=== PATIENT | female | born 1955 | race Caucasian/White ===

== ENCOUNTER → 2017-10-04 | Outpatient (CLI) | payer OTHER ==
--- NOTE | 2017-10-04 10:41 | MM ---
Reason for exam: additional evaluation requested from prior study. Last mammogram was performed 2 years and 11 months ago. History: Patient is postmenopausal. Retro-pectoral saline implants in both breasts, 1999. Excisional biopsy of the right breast, 1969. Physical Findings: Nurse did not find any significant physical abnormalities on exam. MG 3D Diag Mammo Imp W/Cad ZENAIDA Bilateral CC, MLO, and ID view(s) were taken. Prior study comparison: October 30, 2014, bilateral MG diagnostic mammo w CAD ZENAIDA. August 10, 2013, CAD bilateral diagnostic mammogram. There are scattered fibroglandular densities. No suspicious calcifications are seen. Bilateral implants unchanged. No significant new findings when compared with previous films. These results were verbally communicated with the patient and result sheet given to the patient on 10/04/17. ASSESSMENT: Benign, BI-RAD 2 RECOMMENDATION: Routine screening mammogram of both breasts in 1 year.
== END | disposition home or self-care (01) ==
LOC: RADMAMWWP 09:19
PROVIDERS: ATTEND Family Medicine
DX: R92.8 Other abnormal and inconclusive findings on diagnostic imaging of breast (principal); Z98.82 Breast implant status
CPT/HCPCS: 77066; G0279

== ENCOUNTER → 2017-10-04 | Outpatient (CLI) | payer OTHER ==
--- NOTE | 2017-10-04 12:25 | US ---
EXAMINATION TYPE: US kidneys/renal and bladder DATE OF EXAM: 10/04/2017 COMPARISON: NONE CLINICAL HISTORY: N13.30 HX OF HYDRONEPHROSIS F/U. stent for stone placed in July and out August , assess for hydronephrosis,no pain EXAM MEASUREMENTS: Right Kidney: 10.5 x 4.9 x 4.3 cm Left Kidney: 10.8 x 5.0 x 5.6 cm Right Kidney: No hydronephrosis or masses seen Left Kidney: No hydronephrosis or masses seen Bladder: wnl Bilateral Jets seen: no There is no evidence for hydronephrosis at this point in time. No definite shadowing nephrolithiasis is seen bilaterally. No masses are identified. The urinary bladder is anechoic. Bilateral uretera l jets are not seen. IMPRESSION: No hydronephrosis is evident on current study.
== END | disposition home or self-care (01) ==
LOC: RADUSWWP 10:55
PROVIDERS: ATTEND Urology
DX: N13.30 Unspecified hydronephrosis (principal)
CPT/HCPCS: 76770

== ENCOUNTER → 2018-10-26 | Outpatient (CLI) | payer OTHER ==
--- NOTE | 2018-10-26 08:14 | US ---
EXAMINATION TYPE: US gallbladder DATE OF EXAM: 10/26/2018 COMPARISON: 10/04/2017 CLINICAL HISTORY: R10.9 abdominal and pelvic pain. EXAM MEASUREMENTS: Liver Length: 12.8 cm Gallbladder Wall: 0.2 cm CBD: 0.3 cm Right Kidney: 11.2 x 4.0 x 5.0 cm Pancreas: mostly obscured by bowel gas, portions visualized wnl Liver: liver cyst in left lobe measuring1.6 x 1.7 x 1.7cm Gallbladder: cholelithiasis Evidence for sonographic Cortez's sign: no CBD: wnl Right Kidney: Inferior pole obscured by overlying bowel gas IMPRESSION: 1. Cholelithiasis. 2. No sonographic evidence of acute cholecystitis. 3. Obscuration of the majority the pancreas by overlying bowel gas. 4. Benign-appearing hepatic cyst.
== END ==
LOC: RADUSMAIN 07:03
PROVIDERS: ATTEND Surgery
DX: K80.20 Calculus of gallbladder without cholecystitis without obstruction (principal); K76.89 Other specified diseases of liver
CPT/HCPCS: 76705

== ENCOUNTER 2018-11-01 10:42 | Day surgery (SDC) | payer OTHER ==
[2018-10-31 10:14] VITALS: BMI 22.8
[~2018-11-01 10:42] MED LIST: LACTATED RINGERS 1,000 ML IV SCH; LIDOCAINE 1% 20 ML VIAL (10MG/ML) FOR IV START INTRADERMA PRN
[2018-11-01 11:08] VITALS: TEMP 97.7
[2018-11-01] MEDS ORDERED: LIDOCAINE 1% INJ 10MG/ML (20 ML MDV) ONE (11:20)
[2018-11-01] MEDS ORDERED: PROPOFOL 10 MG/ML 20 ML VIAL IV ONE (11:20)
--- NOTE | 2018-11-01 11:25 | P.GSHP ---
History of Present Illness H&P Date: 11/01/18 Chief Complaint: GERD, diarrhea This is a 63-year-old female who's had issues with GERD and diarrhea. Patient presents today for EGD and colonoscopy. Past Medical History Additional Past Medical History / Comment(s): bronchitis with deep cough currently(pt notified Dr Carias), irregular bowel movements, abdominal pain, hx kidney stone, gallstones, History of Any Multi-Drug Resistant Organisms: None Reported Past Surgical History: Breast Surgery, Orthopedic Surgery Additional Past Surgical History / Comment(s): lithotripsy, cyst removed from rt breast, adan breast augmentation, adan bunionectomy Past Anesthesia/Blood Transfusion Reactions: Previous Problems w/ Anesthesia, Motion Sickness Additional Past Anesthesia/Blood Transfusion Reaction / Comment(s): "during previous colonoscopy I woke up and was totally paralyzed and could not breath" Smoking Status: Former smoker - Past Family History Mother Family Medical History: No Reported History Medications and Allergies Home Medications Medication Instructions Recorded Confirmed Type Albuterol Sulfate [Proair Hfa] 1 - 2 puff INHALATION BID PRN 10/31/18 11/01/18 History Citalopram Hydrobromide [CeleXA] 40 mg PO HS 10/31/18 11/01/18 History Dextroamphetamine/Amphetamine 20 mg PO BID 10/31/18 11/01/18 History [Adderall] Fluticasone Nasal [place] [Flonase 2 spr EA NOSTRIL DAILY 10/31/18 11/01/18 History Nasal [place]] buPROPion HCL [Wellbutrin XL] 150 mg PO DAILY 10/31/18 11/01/18 History lamoTRIgine [LaMICtal] 150 mg PO BID 10/31/18 11/01/18 History Allergies Allergy/AdvReac Type Severity Reaction Status Date / Time No Known Allergies Allergy Verified 11/01/18 10:52 Surgical - Exam Vital Signs Temp Pulse Resp BP Pulse Ox 97.7 F 73 16 108/56 98 11/01/18 11:02 11/01/18 11:02 11/01/18 11:02 11/01/18 11:02 11/01/18 11:02 - General well developed, well nourished, no distress - Eyes PERRL - ENT normal pinna - Neck no masses - Respiratory normal expansion - Cardiovascular Rhythm: regular - Abdomen Abdomen: soft, non tender Assessment and Plan Assessment: GERD, diarrhea. We'll perform EGD and colonoscopy.
--- NOTE | 2018-11-01 11:44 | P.OP ---
Date of Procedure: 11/01/18 Preoperative Diagnosis: Diarrhea GERD Postoperative Diagnosis: Duodenitis Mild antral gastritis No evidence of hiatal hernia Mild esophagitis Mild diverticulosis Procedure(s) Performed: EGD Colonoscopy Anesthesia: MAC Surgeon: Gonsalo Carias Pathology: other (Antrum, esophagus, duodenum) Condition: stable Disposition: PACU Description of Procedure: The patient's placed on the endoscopy table in the lateral position. She received IV sedation. The gastric was placed the oropharynx and passed in the esophagus and into the stomach. Scope then placed through the pylorus. The first and second portion of duodenum was examined. There is evidence of inflammation. A biopsies performed. The scope was then brought back the antrum and this appeared mildly inflamed. Another biopsy performed. The scope was then retroflexed and the remainder of the stomach appeared normal. The GE junction was examined at 40 cm.. There is no evidence of any hiatal hernia. The distal esophagus appeared mildly inflamed a biopsies performed. The proximal esophagus appeared normal. Scope was withdrawn for patient. Next digital rectal exam was performed which revealed no abnormalities. The flexible colonoscope was then placed patient anus and passed throughout the entire colon. The ileocecal valve was visualized. The cecum, ascending and transverse colon appeared normal. In the descending and and sigmoid colon was mild diverticular changes. Scope was then brought back the rectum and this appeared normal. Scope was withdrawn for patient.
[2018-11-01 12:03] VITALS: BP 113/65; PULSE 69; RESP 16
== END 2018-11-01 12:25 | disposition home or self-care (01) ==
LOC: ORWHC2ENDO 10:42
PROVIDERS: ATTEND Surgery
DX: K29.80 Duodenitis without bleeding (principal); K29.50 Unspecified chronic gastritis without bleeding; K20.0 Eosinophilic esophagitis; K21.9 Gastro-esophageal reflux disease without esophagitis; K57.30 Diverticulosis of large intestine without perforation or abscess without bleeding; F90.9 Attention-deficit hyperactivity disorder, unspecified type; F41.9 Anxiety disorder, unspecified; F32.9 Major depressive disorder, single episode, unspecified; Z87.891 Personal history of nicotine dependence; Z79.899 Other long term (current) drug therapy
CPT/HCPCS: 88305; 45378; 43239; J2001; J2704

== ENCOUNTER 2018-11-20 06:55 | Day surgery (SDC) | payer OTHER ==
[2018-11-13 10:50] VITALS: BMI 22.1
[~2018-11-20 06:55] MED LIST changes: +DEXAMETHASONE SOD PHOSPHATE 10 MG/ML 1 ML VIAL IV ONE; +HEPARIN SODIUM,PORCINE 5,000 UNIT/ML 1 ML VIAL SQ ONE; -LIDOCAINE 1% 20 ML VIAL (10MG/ML) FOR IV START INTRADERMA PRN; +MIDAZOLAM (PF) 2 MG/2 ML VIAL IV PRN; +ONDANSETRON 4 MG/2 ML VIAL IVP ONE; +SCOPOLAMINE 1.5MG/72HR PATCH TRANSDERM ONE; +ceFAZolin IN SWFI 2 GM/20 ML SYRINGE IVP ONE
[2018-11-20] MEDS ORDERED: ALBUTEROL NEBULIZED 2.5 MG/3 ML INHALATION STA (07:19)
[2018-11-20] MEDS ORDERED: LIDOCAINE 1% 20 ML VIAL (10MG/ML) FOR IV START INTRADERMA ONE (07:24)
[2018-11-20] MEDS ORDERED: LIDOCAINE 1% INJ 10MG/ML (20 ML MDV) ONE (07:50)
[2018-11-20] MEDS ORDERED: GLYCOPYRROLATE 0.2 MG/ML 2 ML VIAL ONE (07:50)
[2018-11-20] MEDS ORDERED: SUCCINYLCHOLINE CHLORIDE 100 MG/5 ML SYR IV ONE (07:50)
[2018-11-20] MEDS ORDERED: ROCURONIUM BROMIDE 10 MG/ML 10 ML VIAL IV ONE (07:50)
[2018-11-20] MEDS ORDERED: PROPOFOL 10 MG/ML 20 ML VIAL IV ONE (07:50)
[2018-11-20] MEDS ORDERED: ePHEDrine SULFATE/0.9% NACL/PF 50 MG/5 ML SYRINGE IV ONE (07:50)
[2018-11-20] MEDS ORDERED: NEOSTIGMINE 1 MG/ML 10 ML VIAL ONE (07:50)
[2018-11-20] MEDS ORDERED: MIDAZOLAM 2 MG/2 ML VIAL ONE (07:50)
[2018-11-20] MEDS ORDERED: fentaNYL (PF) 50 MCG/ML 2 ML AMP ONE (07:50)
--- NOTE | 2018-11-20 08:01 | P.GSHP ---
History of Present Illness H&P Date: 11/20/18 Chief Complaint: Right upper quadrant pain, gallstones This is a 63-year-old female referred from Dr. Edwina Tyson. Patient presents today for laparoscopic cholecystectomy. Patient complaints of right upper quadrant pain. She is found have gallstones on ultrasound. Past Medical History Additional Past Medical History / Comment(s): PT SEEN DR. TYSON TODAY AND WAS TODAY THAT COUGH WAS RELATED TO SINUS DRAINAGE, irregular bowel movements, abdominal pain, hx kidney stone, gallstones, History of Any Multi-Drug Resistant Organisms: None Reported Past Surgical History: Breast Surgery, Orthopedic Surgery Additional Past Surgical History / Comment(s): lithotripsy, cyst removed from rt breast, adan breast augmentation, adan bunionectomy, EGD, COLONOSCOPY Past Anesthesia/Blood Transfusion Reactions: Previous Problems w/ Anesthesia, Motion Sickness Additional Past Anesthesia/Blood Transfusion Reaction / Comment(s): "during previous colonoscopy I woke up and was totally paralyzed and could not breath" Smoking Status: Former smoker - Past Family History Mother Family Medical History: No Reported History Medications and Allergies Home Medications Medication Instructions Recorded Confirmed Type Albuterol Sulfate [Proair Hfa] 1 - 2 puff INHALATION BID PRN 10/31/18 11/20/18 History Citalopram Hydrobromide [CeleXA] 40 mg PO HS 10/31/18 11/20/18 History Dextroamphetamine/Amphetamine 20 mg PO BID 10/31/18 11/20/18 History [Adderall] Fluticasone Nasal [place] [Flonase 2 spr EA NOSTRIL DAILY 10/31/18 11/20/18 History Nasal [place]] buPROPion HCL [Wellbutrin XL] 150 mg PO DAILY 10/31/18 11/20/18 History lamoTRIgine [LaMICtal] 150 mg PO BID 10/31/18 11/20/18 History Omeprazole 40 mg PO DAILY #60 capsule. 11/01/18 11/20/18 Rx Allergies Allergy/AdvReac Type Severity Reaction Status Date / Time No Known Allergies Allergy Verified 11/13/18 10:45 Surgical - Exam Vital Signs Temp Pulse Resp BP Pulse Ox 97.5 F L 76 16 113/64 100 11/20/18 07:17 11/20/18 07:17 11/20/18 07:17 11/20/18 07:17 11/20/18 07:17 - General well developed, well nourished, no distress - Eyes PERRL - ENT normal pinna - Neck no masses - Respiratory normal expansion - Cardiovascular Rhythm: regular - Abdomen Abdomen: soft, non tender Assessment and Plan Assessment: Cholelithiasis Chronic cholecystitis We'll perform laparoscopic cholecystectomy.
--- NOTE | 2018-11-20 08:17 | P.OP ---
Date of Procedure: 11/20/18 Preoperative Diagnosis: GERD Diverticulitis Postoperative Diagnosis: Mild antral gastritis No hiatal hernia Significant diverticulosis of sigmoid colon Procedure(s) Performed: EGD Colonoscopy Anesthesia: MAC Surgeon: Gonsalo Carias Pathology: other (Antrum) Condition: stable Disposition: PACU Description of Procedure: The patient's placed on the endoscopy table in the lateral position she received IV sedation. The gastric was placed oropharynx and passed into the esophagus and stomach. The scope was then placed through the pylorus. The first and second portion of the duodenum appeared normal. The scope was then brought back the antrum this. Mildly inflamed. A biopsy was performed. Scope was then retroflexed and the remainder of the stomach appeared normal. There was no evidence of a hiatal hernia. The GE junction was at 40 cm. The distal esophagus appeared normal. The proximal esophagus appeared normal. Scope was withdrawn for patient. Next digital rectal exam was performed which revealed no abnormalities. The flexible colonoscope was then placed patient anus and passed throughout the entire colon. The ileocecal valve was visualized. The cecum, ascending and transverse colon appeared normal. In the descending and sigmoid colon there was diverticula noted. There was significant diverticulosis of the sigmoid colon. The scope was brought back the rectum and this appeared normal. Scope was withdrawn for patient.
[2018-11-20] MEDS ORDERED: BUPIVACAIN-EPI 0.5%-1:200,000 30 ML VIAL SQ ONE (08:23)
[2018-11-20] MEDS ORDERED: LACTATED RINGERS 1,000 ML IV ONE (08:31)
--- NOTE | 2018-11-20 08:54 | P.OP ---
Date of Procedure: 11/20/18 Preoperative Diagnosis: Cholecystitis Cholelithiasis Postoperative Diagnosis: Cholecystitis Cholelithiasis Procedure(s) Performed: Laparoscopic cholecystectomy Anesthesia: AMISH Surgeon: Gonsalo Carias Estimated Blood Loss (ml): 5 Pathology: other (Gallbladder) Condition: stable Disposition: PACU Description of Procedure: The patient was placed on the operating table. The patient received a general endotracheal tube anesthesia. The patients abdomen was prepped and draped in the usual sterile fashion. Through an infraumbilical stab incision, the fascia of the anterior abdominal wall was grasped with a pair of Kochers and then the Veress needle was placed in the peritoneal cavity. Position of the Veress needle was confirmed with positive drop test. The abdomen was then insufflated. After adequate insufflation, the 10 mm trocar was placed in the peritoneal cavity. Following this the laparoscope was placed in the peritoneal cavity. The patient was placed in the head-up, right side up position and then a 5 mm trocar was placed in the right lateral and right subcostal position under direct visualization. A 8 mm trocar was placed in the epigastric position. The gallbladder was grasped in the fundus and infundibulum. Traction on the gallbladder was placed in the lateral and the cephalad positions. The triangle of Calot was visualized.. The cystic duct was bluntly dissected until the union of the cystic duct and common bile duct wa s seen. The cystic duct was then divided and sealed with the Harmonic scissors. A PDS Endoloop was then placed throughout the cystic duct stump. The cystic artery divided and sealed with the Harmonic scissors. The gallbladder was then removed from the liver bed using Harmonic scissors. The gallbladder was then extracted through the epigastric port site. Operative field was checked for any bleeding spots and Harmonic scissors was used to coagulate the liver bed. The abdomen was irrigated. The trocars were removed. The skin was closed using interrupted 3-0 Vicryl suture. Dermabond dressing were applied. The patient tolerated the procedure well.
[2018-11-20 09:01] VITALS: TEMP 96.8
[2018-11-20] MEDS: HYDROmorphone 0.5 MG/0.5 ML SYRINGE IVP PRN ×2 (09:08→09:14)
[2018-11-20] MEDS ORDERED: HYDROcodone/APAP 7.5-325MG 1 EACH TAB PO ONE (10:50)
[2018-11-20 11:13] VITALS: RESP 18
[2018-11-20 11:53] VITALS: BP 108/64; PULSE 99
== END 2018-11-20 12:10 | disposition home or self-care (01) ==
LOC: OR 06:55
PROVIDERS: ATTEND Surgery
DX: K80.10 Calculus of gallbladder with chronic cholecystitis without obstruction (principal); K21.9 Gastro-esophageal reflux disease without esophagitis; J40 Bronchitis, not specified as acute or chronic; F32.9 Major depressive disorder, single episode, unspecified; F41.9 Anxiety disorder, unspecified; F90.9 Attention-deficit hyperactivity disorder, unspecified type; Z87.442 Personal history of urinary calculi; Z87.891 Personal history of nicotine dependence; Z79.899 Other long term (current) drug therapy
CPT/HCPCS: 47562; 94640; 88304; J2250; J1100; J2710; J2405; J2001; J3010; J0330; J2704; J1170

== ENCOUNTER → 2020-05-16 | Outpatient (CLI) | payer OTHER ==
--- NOTE | 2020-05-16 11:38 | CT ---
EXAMINATION TYPE: CT abdomen pelvis w con DATE OF EXAM: 05/16/2020 COMPARISON: Ultrasound 10/26/2018 HISTORY: epigastric pain CT DLP: 423.9 mGycm Automated exposure control for dose reduction was used. TECHNIQUE: Helical acquisition of images from the lung bases through the pelvis have been completed. Contrast bolus is not optimal. CONTRAST: Performed with Oral Contrast and with IV Contrast, patient injected with 100 mL of Isovue 300. FINDINGS: LUNG BASES: No significant abnormality is appreciated. AORTA: No significant abnormality is appreciated. LIVER/GB: There are 2 low dense foci within the liver likely representing cysts within the left lobe, larger measures approximately 18 mm on axial image #9, smaller adjacent to the sienna which is only 9 mm axial image 14, gallbladder is absent and there is some mild prominence of the, bile duct likely due to postop change. PANCREAS: No significant abnormality is seen. SPLEEN: No significant abnormality is seen. ADRENALS: No significant abnormality is seen. KIDNEYS: No significant abnormality is seen. REPRODUCTIVE ORGANS: Uterus is bulky and shows associated calcifications within various masses consis tent with fibroids, ovaries are unremarkable. BOWEL: No significant abnormality is seen. FREE AIR: No Free Air visible. ASCITES: None visible. PELVIC ADENOPATHY: None visualized. RETROPERITONEAL ADENOPATHY: No Retroperitoneal Adenopathy visible. URINARY BLADDER: No significant abnormality is seen. OSSEOUS STRUCTURES: No significant abnormality is seen. IMPRESSION: FIBROID UTERUS. POSTOP CHANGES.
== END | disposition home or self-care (01) ==
LOC: RADCTMAIN 07:20
PROVIDERS: ATTEND Surgery Plastic and Reconstructive Surgery
DX: D25.9 Leiomyoma of uterus, unspecified (principal); Z98.890 Other specified postprocedural states
CPT/HCPCS: 74177; Q9967

== ENCOUNTER → 2021-03-30 | Outpatient (CLI) | payer OTHER ==
--- NOTE | 2021-04-01 09:59 | MM ---
Reason for exam: screening (asymptomatic). Last mammogram was performed 3 years and 6 months ago. History: Patient is postmenopausal. Retro-pectoral saline implants in both breasts, 1999. Excisional biopsy of the right breast, 1969. Physical Findings: A clinical breast exam by your physician is recommended on an annual basis and results should be correlated with mammographic findings. MG 3D Screen Mammo Imp/Cad Bilateral CC, MLO, and ID view(s) were taken. Prior study comparison: October 04, 2017, bilateral MG 3d diag mammo imp w/cad ZENAIDA. October 30, 2014, bilateral MG diagnostic mammo w CAD ZENAIDA. Bilateral breast prothesis. No significant changes when compared with prior studies. ASSESSMENT: Benign, BI-RAD 2 RECOMMENDATION: Routine screening mammogram of both breasts in 1 year.
== END | disposition home or self-care (01) ==
LOC: RADMAMWWP 12:52
PROVIDERS: ATTEND Family Medicine
DX: Z12.31 Encounter for screening mammogram for malignant neoplasm of breast (principal); Z78.0 Asymptomatic menopausal state; Z98.82 Breast implant status
CPT/HCPCS: 77063; 77067